=== PATIENT | female | born 1955 | race African-American/Black ===

== ENCOUNTER 2018-05-05 14:33 | Emergency (ER) | payer MEDICAID, OTHER ==
[~2018-05-05] VITALS: Ht 170.2 cm; Wt 70.0 kg
[2018-05-05] MEDS ORDERED: NITROGLYCERIN 0.4MG TABLET SL SL PRN (15:15)
[2018-05-05] MEDS ORDERED: ASPIRIN 81MG TABLET PO ONE (15:15)
[2018-05-05 15:58] VITALS: BP 178/102
[2018-05-05] MEDS ORDERED: NA PHOS,M-B/NA PHOS,DI-BA ENEMA 118ML PR ONE (16:15)
== END 2018-05-05 16:15 | disposition left against medical advice (07) ==
LOC: ER 14:33 → CANBEDREQ 22:37
DX: R07.9 Chest pain, unspecified (principal); I10 Essential (primary) hypertension; E11.9 Type 2 diabetes mellitus without complications; F17.200 Nicotine dependence, unspecified, uncomplicated; Z71.6 Tobacco abuse counseling; Z91.14 Patient's other noncompliance with medication regimen
CPT/HCPCS: 71045; 93005; 99283; 99406